=== PATIENT | female | born 1995 | race Caucasian/White ===

== ENCOUNTER → 2017-12-30 | Outpatient (REF) | payer OTHER ==
[2017-12-31 12:51] LABS: CHLAMYDIA DNA AMPLIFICATION NEGATIVE (NEGATIVE); GC DNA AMPLIFICATION NEGATIVE (NEGATIVE)
== END ==
LOC: M SFHCLERA 17:14
DX: R30.0 Dysuria (principal)
CPT/HCPCS: 87086

== ENCOUNTER 2018-01-05 18:04 | Outpatient (CLI) | payer OTHER ==
[2018-01-05] MEDS: CYCLOBENZAPRINE 10 MG TAB PO (19:38)
== END 2018-01-05 19:55 | disposition home or self-care (01) ==
LOC: M LDO 18:04
DX: O26.892 Other specified pregnancy related conditions, second trimester (principal); Z3A.23 23 weeks gestation of pregnancy; O24.419 Gestational diabetes mellitus in pregnancy, unspecified control; O36.8920 Maternal care for other specified fetal problems, second trimester, not applicable or unspecified; Z87.59 Personal history of other complications of pregnancy, childbirth and the puerperium; O99.342 Other mental disorders complicating pregnancy, second trimester; F32.9 Major depressive disorder, single episode, unspecified; O23.42 Unspecified infection of urinary tract in pregnancy, second trimester
CPT/HCPCS: G0463

== ENCOUNTER 2018-01-18 20:02 | Outpatient (CLI) | payer OTHER | END 2018-01-18 21:49 | disposition home or self-care (01) | LOC: M LDO 20:02 | DX: O60.02 Preterm labor without delivery, second trimester (principal); O24.419 Gestational diabetes mellitus in pregnancy, unspecified control; O36.8920 Maternal care for other specified fetal problems, second trimester, not applicable or unspecified; Z3A.25 25 weeks gestation of pregnancy | CPT/HCPCS: 59025 ==

== ENCOUNTER 2018-01-23 15:54 | Outpatient (CLI) | payer OTHER | END 2018-01-23 21:25 | disposition home or self-care (01) | LOC: M LDO 15:54 | DX: O36.8120 Decreased fetal movements, second trimester, not applicable or unspecified (principal); Z3A.26 26 weeks gestation of pregnancy; O36.8920 Maternal care for other specified fetal problems, second trimester, not applicable or unspecified; O24.419 Gestational diabetes mellitus in pregnancy, unspecified control; O99.342 Other mental disorders complicating pregnancy, second trimester | CPT/HCPCS: 76820 ==

== ENCOUNTER 2018-02-03 17:12 | Outpatient (CLI) | payer OTHER ==
[2018-02-03 18:42] LABS: HEMATOCRIT 35.6 % (36.0-47.0); HEMOGLOBIN 12.2 g/dl (12.0-15.5); MEAN CORPUSCULAR HEMOGLOBIN 27.9 pg (27.0-33.0); MEAN CORPUSCULAR HGB CONC 34.3 g/dl (32.0-36.5); MEAN CORPUSCULAR VOLUME 81.5 fl (80.0-96.0); PLATELET COUNT, AUTOMATED 234 10^3/uL (150-450); RED BLOOD COUNT 4.37 10^6/uL (4.00-5.40); RED CELL DISTRIBUTION WIDTH 13.1 % (11.5-14.5)
[2018-02-03 18:46] LABS: APPEARANCE, URINE CLEAR (CLEAR); BACTERIA, URINE AUTO NEGATIVE (NEGATIVE); BILIRUBIN, URINE AUTO NEGATIVE (NEGATIVE); BLOOD, URINE BLOOD NEGATIVE (NEGATIVE); COLOR, URINE YELLOW (YELLOW); GLUCOSE, URINE (UA) AUTO NEGATIVE (NEGATIVE); KETONE, URINE AUTO TRACE mg/dL (NEGATIVE); LEUKOCYTE ESTERASE, URINE AUTO NEGATIVE (NEGATIVE); MUCUS, URINE SMALL (NEGATIVE); NITRITE, URINE AUTO NEGATIVE (NEGATIVE); PROTEIN, URINE AUTO NEGATIVE (NEGATIVE); RBC, URINE AUTO 1 /HPF (0-3); SPECIFIC GRAVITY URINE AUTO 1.028 (1.002-1.035); SQUAMOUS EPITHELIAL CELL UR AU 1 /HPF (0-6); WBC, URINE AUTO 2 /HPF (0-3)
[2018-02-03 19:08] LABS: ALBUMIN 3.7 GM/DL (3.2-5.2); ALKALINE PHOSPHATASE 111 U/L (45-117); ALT/SGPT 14 U/L (12-78); AMYLASE 22 U/L (25-115); ANION GAP 8 MEQ/L (8-16); AST/SGOT 9 U/L (7-37); BILIRUBIN,TOTAL 0.5 MG/DL (0.2-1.0); BLOOD UREA NITROGEN 6 MG/DL (7-18); CALCIUM LEVEL 8.5 MG/DL (8.5-10.1); CARBON DIOXIDE LEVEL 25 MEQ/L (21-32); CHLORIDE LEVEL 107 MEQ/L (98-107); CREATININE FOR GFR 0.37 MG/DL (0.55-1.30); GLOMERULAR FILTRATION RATE > 60.0 (>60); GLUCOSE, FASTING 80 MG/DL (70-100); LIPASE 69 U/L (73-393); POTASSIUM SERUM 3.6 MEQ/L (3.5-5.1); SODIUM LEVEL 140 MEQ/L (136-145); TOTAL PROTEIN 7.4 GM/DL (6.4-8.2)
== END 2018-02-03 20:20 | disposition home or self-care (01) ==
LOC: M LDO 17:12
DX: O35.8XX0 Maternal care for other (suspected) fetal abnormality and damage, not applicable or unspecified (principal); Z3A.27 27 weeks gestation of pregnancy; O36.5930 Maternal care for other known or suspected poor fetal growth, third trimester, not applicable or unspecified
CPT/HCPCS: G0463

== ENCOUNTER 2018-07-15 18:42 | Emergency (ER) | payer OTHER ==
[~2018-07-15] VITALS: Ht 157.5 cm; Wt 79.5 kg
[~2018-07-15 18:42] MED LIST: COLA100C5 PO; MAPA500T17 PO; MOTR200T44 PO; MULTCAP PO
[2018-07-15] MEDS ORDERED: ONDANSETRON 4MG/2ML VIAL (J2405) IV ONE (20:30)
[2018-07-15] MEDS ORDERED: NS 1,000 ML IV ONE (20:30)
[2018-07-15 20:44] LABS: BASO % 0.3 % (0.0-1.0); EOS # 0.1 10^3/uL (0.0-0.50); EOS % 1.3 % (0.0-3.0); HEMATOCRIT 38.5 % (36.0-47.0); HEMOGLOBIN 12.6 g/dl (12.0-15.5); LYMPH # 2.9 10^3/uL (1.5-6.5); LYMPH % 29.7 % (24.0-44.0); MEAN CORPUSCULAR HEMOGLOBIN 26.9 pg (27.0-33.0); MEAN CORPUSCULAR HGB CONC 32.7 g/dl (32.0-36.5); MEAN CORPUSCULAR VOLUME 82.1 fl (80.0-96.0); MONO # 0.7 10^3/uL (0.0-0.8); MONO % 6.9 % (0.0-5.0); NEUTROPHILS # 6.1 10^3/uL (1.8-7.7); NEUTROPHILS % 61.6 % (36.0-66.0); PLATELET COUNT, AUTOMATED 303 10^3/uL (150-450); RED BLOOD COUNT 4.69 10^6/uL (4.00-5.40); WHITE BLOOD COUNT 9.9 10^3/uL (4.0-10.0)
[2018-07-15] MEDS ORDERED: ONDANSETRON 4 MG ORAL DISINTEGRATING TAB (Q0162 PER 1MG) PO ONE (20:45)
[2018-07-15 20:58] LABS: HCG, SERUM QUALITATIVE NEGATIVE (NEGATIVE)
[2018-07-15 21:06] LABS: ALBUMIN 4.3 GM/DL (3.2-5.2); ALT/SGPT 17 U/L (12-78); BILIRUBIN,DIRECT 0.1 MG/DL (0.0-0.2); BILIRUBIN,TOTAL 0.5 MG/DL (0.2-1.0); BLOOD UREA NITROGEN 6 MG/DL (7-18); CALCIUM LEVEL 8.7 MG/DL (8.5-10.1); CARBON DIOXIDE LEVEL 28 MEQ/L (21-32); CHLORIDE LEVEL 104 MEQ/L (98-107); CREATININE FOR GFR 0.58 MG/DL (0.55-1.30); GLOMERULAR FILTRATION RATE > 60.0 (>60); GLUCOSE, FASTING 91 MG/DL (70-100); POTASSIUM SERUM 4.2 MEQ/L (3.5-5.1); SODIUM LEVEL 138 MEQ/L (136-145); TOTAL PROTEIN 8.2 GM/DL (6.4-8.2)
--- NOTE | 2018-07-15 23:14 | REPVR ---
EXAM: US Pelvis Complete, Transabdominal and US Pelvis, Transvaginal EXAM DATE/TIME: 07/15/2018 9:58 PM CLINICAL HISTORY: 23 years old, female; Signs and symptoms; Menstruation abnormalities; Excessive menstruation; With regular cycle; Additional info: Irregular vaginal bleeding TECHNIQUE: Real-time transabdominal and transvaginal pelvic ultrasound (complete) with image documentation. Transvaginal imaging was used for better evaluation of the endometrium and adnexa. COMPARISON: US OBS SINGEL GEST 01/23/2018 6:43 PM FINDINGS: Uterus/cervix: 8.8 x 3.5 x 5.3 cm. Normal endometrial thickness, measuring approximately 11 mm. Right adnexa: 3.7 x 2.4 x 3 cm. Several follicles. No solid mass. Normal ovarian blood flow. Left adnexa: 2.7 x 2.3 x 2.5 cm. 1.6 x 1.2 x 1.2 cm dominant follicle. No solid mass. Normal ovarian blood flow. Free fluid: None. Bladder: Normal. IMPRESSION: No acute sonographic findings. Electronically signed by: Radhames Liang On 07/15/2018 23:13:47 PM
[2018-07-15 23:30] VITALS: BP 112/69
== END 2018-07-15 23:31 | disposition home or self-care (01) ==
LOC: M ED 18:42
DX: N93.9 Abnormal uterine and vaginal bleeding, unspecified (principal)
CPT/HCPCS: 76830; 76856; 80048; 80076; 81001; 84703; 85025; 86850; 86900; 86901; 93976; 96374; 99283; Q0162

== ENCOUNTER 2018-08-01 21:43 | Emergency (ER) | payer OTHER ==
[~2018-08-01] VITALS: Ht 157.5 cm; Wt 80.0 kg
[~2018-08-01 21:43] MED LIST changes: -MAPA500T17 PO; +MAPA500T2 PO
[2018-08-01] MEDS ORDERED: AMOX500C PO (23:17)
[2018-08-01 23:26] VITALS: BP 120/60
[2018-08-02 00:36] LABS: CHLAMYDIA DNA AMPLIFICATION NEGATIVE (NEGATIVE); GC DNA AMPLIFICATION NEGATIVE (NEGATIVE)
== END 2018-08-01 23:25 | disposition home or self-care (01) ==
LOC: M ED 21:43
DX: N39.0 Urinary tract infection, site not specified (principal); N89.8 Other specified noninflammatory disorders of vagina; Z91.018 Allergy to other foods; Z91.040 Latex allergy status; Z91.89 Other specified personal risk factors, not elsewhere classified

== ENCOUNTER 2018-08-03 08:52 | Emergency (ER) | payer OTHER ==
[~2018-08-03] VITALS: Ht 157.5 cm; Wt 79.5 kg
[~2018-08-03 08:52] MED LIST changes: +AMOX500C PO
[2018-08-03] MEDS ORDERED: MORPHINE 4 MG/ML 1ML VIAL/SYRINGE (J2270) IV ONE (09:45)
[2018-08-03] MEDS ORDERED: ONDANSETRON 4MG/2ML VIAL (J2405) IV ONE (09:45)
[2018-08-03] MEDS ORDERED: NS 1,000 ML IV ONE (09:45)
[2018-08-03 10:05] LABS: BASO % 0.4 % (0.0-1.0); EOS # 0.1 10^3/uL (0.0-0.50); EOS % 1.2 % (0.0-3.0); HEMOGLOBIN 12.9 g/dl (12.0-15.5); LYMPH # 2.2 10^3/uL (1.5-6.5); LYMPH % 26.1 % (24.0-44.0); MEAN CORPUSCULAR HEMOGLOBIN 27.3 pg (27.0-33.0); MEAN CORPUSCULAR HGB CONC 33.1 g/dl (32.0-36.5); MEAN CORPUSCULAR VOLUME 82.5 fl (80.0-96.0); MONO # 0.5 10^3/uL (0.0-0.8); MONO % 6.1 % (0.0-5.0); NEUTROPHILS # 5.5 10^3/uL (1.8-7.7); PLATELET COUNT, AUTOMATED 270 10^3/uL (150-450); RED BLOOD COUNT 4.73 10^6/uL (4.00-5.40); WHITE BLOOD COUNT 8.3 10^3/uL (4.0-10.0)
[2018-08-03 10:31] LABS: HCG, SERUM QUALITATIVE NEGATIVE (NEGATIVE)
[2018-08-03 10:34] LABS: ALT/SGPT 13 U/L (12-78); BILIRUBIN,TOTAL 0.7 MG/DL (0.2-1.0); BLOOD UREA NITROGEN 8 MG/DL (7-18); CALCIUM LEVEL 8.9 MG/DL (8.5-10.1); CARBON DIOXIDE LEVEL 25 MEQ/L (21-32); CHLORIDE LEVEL 106 MEQ/L (98-107); CREATININE FOR GFR 0.52 MG/DL (0.55-1.30); GLOMERULAR FILTRATION RATE > 60.0 (>60); GLUCOSE, FASTING 89 MG/DL (70-100); LIPASE 79 U/L (73-393); POTASSIUM SERUM 3.7 MEQ/L (3.5-5.1); SODIUM LEVEL 139 MEQ/L (136-145); TOTAL PROTEIN 8.3 GM/DL (6.4-8.2)
[2018-08-03 11:22] VITALS: BP 115/76
== END 2018-08-03 11:24 | disposition left against medical advice (07) ==
LOC: M ED 08:52
DX: R10.9 Unspecified abdominal pain (principal); Z91.040 Latex allergy status; Z91.018 Allergy to other foods; Z91.048 Other nonmedicinal substance allergy status

== ENCOUNTER → 2018-10-23 | Outpatient (REF) | payer OTHER | LOC: M SFHCLERA 18:00 | PROVIDERS: ATTEND Physician Assistant | DX: N89.8 Other specified noninflammatory disorders of vagina (principal) ==

== ENCOUNTER → 2019-01-29 | Outpatient (CLI) | payer OTHER ==
--- NOTE | 2019-01-29 15:20 | REP ---
Clinical: Anatomical evaluation. Comparison: None . Findings: Examination demonstrates a single live intrauterine in cephalic presentation. motion is identified by technologist. Placenta is noted anterior and grade one without evidence for placenta previa or abruption. Amniotic fluid volume is normal. Cervix measures 5.2 cm in length and appears closed. No evidence for nuchal cord. Gestational age by LMP 25 weeks 3 days with TOVA 05/11/2019 . Gestational age by current measurements 25 weeks 6 days with TOVA 05/08/2019 . FHR equals 130 beats per minute. BPD 6.5 cm 26 weeks 2 days HC 23.8 cm 25 weeks 6 days AC 21.2 cm 25 weeks 5 days FL 4.7 cm 25 weeks 5 days HL 4.4 cm 26 weeks 1 day HC/AC ratio 1.12 Estimated weight 147 grams ( 52nd percentile). Anatomical assessment demonstrates normal structures including cranium, choroid plexus, cavum, cerebellum/posterior fossa, facial features, lungs, four-chamber heart/ventricular outflow tracts, diaphragm, stomach, cord insertion/three-vessel cord, kidneys/bladder, and upper extremities. Limited evaluation of the spine and lower extremities noted. Impression: 1. Single live intrauterine in cephalic presentation demonstrating appropriate interval growth. 2. Limited evaluation of the spine and lower extremities may warrant reevaluation and follow-up. Remainder of the anatomical assessment is complete and normal. Electronically Signed by Celestine Menjivar MD 01/29/2019 03:12 P
== END ==
LOC: M RAD 12:48
PROVIDERS: ATTEND Obstetrics & Gynecology
DX: Z34.82 Encounter for supervision of other normal pregnancy, second trimester (principal); Z3A.25 25 weeks gestation of pregnancy

== ENCOUNTER → 2019-02-08 | Outpatient (REF) | payer OTHER | LOC: M SFHCLERA 11:47 | PROVIDERS: ATTEND Nurse Practitioner Family | DX: Z53.9 Procedure and treatment not carried out, unspecified reason (principal); R19.5 Other fecal abnormalities ==

== ENCOUNTER → 2019-02-09 | Outpatient (REF) | payer OTHER | LOC: M LAB REF 10:58 | PROVIDERS: ATTEND Nurse Practitioner Family | DX: R19.5 Other fecal abnormalities (principal) ==

== ENCOUNTER → 2019-02-24 | Outpatient (CLI) | payer OTHER ==
[2019-02-24 11:21] LABS: HEMATOCRIT 31.8 % (36.0-47.0); HEMOGLOBIN 10.3 g/dl (12.0-15.5); MEAN CORPUSCULAR HEMOGLOBIN 26.8 pg (27.0-33.0); MEAN CORPUSCULAR HGB CONC 32.4 g/dl (32.0-36.5); MEAN CORPUSCULAR VOLUME 82.6 fl (80.0-96.0); PLATELET COUNT, AUTOMATED 200 10^3/uL (150-450); RED BLOOD COUNT 3.85 10^6/uL (4.00-5.40); WHITE BLOOD COUNT 11.1 10^3/uL (4.0-10.0)
--- NOTE | 2019-02-24 11:46 | REP ---
Clinical: Anatomical evaluation. Comparison: 01/29/2019 . Findings: Examination demonstrates a single live intrauterine in cephalic presentation. motion is identified by technologist. Placenta is noted anterior and grade zero without evidence for placenta previa or abruption. Amniotic fluid volume is normal. Cervix measures 3.6 cm in length and appears closed. No evidence for nuchal cord. Gestational age by LMP 29 weeks 1 day with TOVA 05/11/2019 . Gestational age by current measurements 30 weeks 0 days with TOVA 05/05/2019 . FHR equals 129 beats per minute. Amniotic fluid index: 14.3 cm Biophysical profile score: 8/8 Umbilical cord SD ratio: 4.42 (2.50 - 3.50). Estimated weight 1565 grams ( 73rd percentile). Anatomical assessment demonstrates normal structures including cranium, choroid plexus, cavum, cerebellum/posterior fossa, facial features, lungs, four-chamber heart/ventricular outflow tracts, diaphragm, stomach, cord insertion/three-vessel cord, kidneys/bladder, spine, and extremities. Impression: 1. Single live intrauterine in cephalic presentation demonstrating appropriate interval growth. No gross abnormalities are identified. 2. Mildly elevated umbilical cord SD ratio. Electronically Signed by Celestine Menjivar MD 02/24/2019 11:39 A
== END ==
LOC: M RAD 10:25
PROVIDERS: ATTEND Obstetrics & Gynecology
DX: Z36.9 Encounter for antenatal screening, unspecified (principal); Z3A.30 30 weeks gestation of pregnancy

== ENCOUNTER → 2019-03-11 | Outpatient (REF) | payer OTHER ==
[2019-03-11 13:22] LABS: CHLAMYDIA DNA AMPLIFICATION NEGATIVE (NEGATIVE); GC DNA AMPLIFICATION NEGATIVE (NEGATIVE)
== END ==
LOC: M SFHCLERA 09:39
PROVIDERS: ATTEND Nurse Practitioner Family
DX: R10.2 Pelvic and perineal pain (principal)

== ENCOUNTER → 2019-03-14 | Outpatient (CLI) | payer OTHER ==
[2019-03-14 14:11] LABS: BASO # 0.1 10^3/uL (0.0-0.2); BASO % 0.4 % (0.0-1.0); EOS # 0.1 10^3/uL (0.0-0.50); EOS % 0.6 % (0.0-3.0); HEMATOCRIT 29.8 % (36.0-47.0); HEMOGLOBIN 9.6 g/dl (12.0-15.5); LYMPH # 2.2 10^3/uL (1.5-6.5); LYMPH % 14.4 % (24.0-44.0); MEAN CORPUSCULAR HEMOGLOBIN 26.2 pg (27.0-33.0); MEAN CORPUSCULAR HGB CONC 32.2 g/dl (32.0-36.5); MEAN CORPUSCULAR VOLUME 81.2 fl (80.0-96.0); MONO # 0.9 10^3/uL (0.0-0.8); MONO % 6.1 % (0.0-5.0); NEUTROPHILS # 11.6 10^3/uL (1.8-7.7); NEUTROPHILS % 76.2 % (36.0-66.0); PLATELET COUNT, AUTOMATED 200 10^3/uL (150-450); RED BLOOD COUNT 3.67 10^6/uL (4.00-5.40); WHITE BLOOD COUNT 15.2 10^3/uL (4.0-10.0)
[2019-03-14 14:36] LABS: ALBUMIN 2.6 GM/DL (3.2-5.2); BILIRUBIN,DIRECT 0.2 MG/DL (0.0-0.2); BILIRUBIN,TOTAL 0.4 MG/DL (0.2-1.0); TOTAL PROTEIN 6.5 GM/DL (6.4-8.2)
== END ==
LOC: M LAB 13:17
PROVIDERS: ATTEND Advanced Practice Midwife
DX: O09.293 Supervision of pregnancy with other poor reproductive or obstetric history, third trimester (principal); R10.13 Epigastric pain

== ENCOUNTER 2019-03-17 11:12 | Outpatient (CLI) | payer OTHER ==
[~2019-03-17] VITALS: Ht 157.5 cm; Wt 90.8 kg
[2019-03-17 11:37] VITALS: BP 118/55
[2019-03-17] MEDS ORDERED: FLUCONAZOLE 50MG TABLET PO ONE (12:45)
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
== END 2019-03-17 12:50 | disposition home or self-care (01) ==
LOC: M LDO 11:12
PROVIDERS: ATTEND Advanced Practice Midwife
DX: O99.89 Other specified diseases and conditions complicating pregnancy, childbirth and the puerperium (principal); B37.3 Candidiasis of vulva and vagina; Z3A.31 31 weeks gestation of pregnancy
CPT/HCPCS: 59025; G0378; G0463

== ENCOUNTER → 2019-04-17 | Outpatient (CLI) | payer OTHER ==
[~2019-04-17] MED LIST changes: +PRENTAB9 PO
--- NOTE | 2019-04-18 04:01 | REP ---
Clinical: Growth evaluation. Comparison: 02/24/2019 . Findings: Examination demonstrates a single live intrauterine in cephalic presentation. motion is identified by technologist. Placenta is noted anterior and grade one without evidence for placenta previa or abruption. Amniotic fluid volume is normal. Cervix measures 3.3 cm in length and appears closed. No evidence for nuchal cord. Gestational age by LMP 36 weeks 4 days with TOVA 05/11/2019 . Gestational age by current measurements 38 weeks 0 days with TOVA 05/01/2019 . FHR equals 153 beats per minute. BPD 9.5 cm 38 weeks 4 days HC 33.3 cm 38 weeks 0 days AC 34.7 cm 38 weeks 4 days FL 7.3 cm 37 weeks 3 days HL 6.5 cm 37 weeks 3 days HC/AC ratio 0.96 Estimated weight 3442 grams ( 82nd percentile). Amniotic fluid index: 14.4 cm Umbilical cord SD ratio: 2.77 Impression: Single live intrauterine in cephalic presentation demonstrating somewhat greater than expected growth based on current measurements. Estimated weight remains within normal range. Electronically Signed by Celestine Menjivar MD 04/18/2019 03:52 A
== END ==
LOC: M RAD 12:26
PROVIDERS: ATTEND Advanced Practice Midwife
DX: O09.293 Supervision of pregnancy with other poor reproductive or obstetric history, third trimester (principal); Z3A.36 36 weeks gestation of pregnancy

== ENCOUNTER 2019-04-20 23:44 | Outpatient (CLI) | payer OTHER ==
[~2019-04-20] VITALS: Ht 157.5 cm; Wt 93.6 kg
[~2019-04-20 23:44] MED LIST changes: -PRENTAB9 PO
[2019-04-21 00:08] VITALS: BP 106/67
[2019-04-21] MEDS ORDERED: PRENTAB9 PO (00:29)
== END 2019-04-21 03:15 | disposition home or self-care (01) ==
LOC: M LDO 23:44
PROVIDERS: ATTEND Specialist
DX: O26.893 Other specified pregnancy related conditions, third trimester (principal); M54.5 Low back pain; O47.03 False labor before 37 completed weeks of gestation, third trimester; Z3A.36 36 weeks gestation of pregnancy
CPT/HCPCS: 59025; G0378; G0463

== ENCOUNTER → 2019-04-23 | Outpatient (REF) | payer OTHER ==
[~2019-04-23] MED LIST changes: +PRENTAB9 PO
== END ==
LOC: M LAB REF 18:55
PROVIDERS: ATTEND Obstetrics & Gynecology
DX: Z36.85 Encounter for antenatal screening for Streptococcus B (principal)

== ENCOUNTER 2019-05-07 00:33 | Outpatient (CLI) | payer OTHER ==
[~2019-05-07] VITALS: Ht 157.5 cm; Wt 93.0 kg
[2019-05-07 00:56] VITALS: BP 116/65
== END 2019-05-07 01:33 | disposition home or self-care (01) ==
LOC: M LDO 00:33
PROVIDERS: ATTEND Specialist
DX: O47.1 False labor at or after 37 completed weeks of gestation (principal); Z3A.38 38 weeks gestation of pregnancy
CPT/HCPCS: 59025; G0378; G0463

== ENCOUNTER 2019-05-10 07:29 | Inpatient (IN) | payer OTHER ==
[2019-05-10] VITALS (26 sets, daily range): BP systolic 89–182; BP diastolic 51–130
[~2019-05-10] VITALS: Ht 157.5 cm; Wt 94.7 kg
[2019-05-10] MEDS ORDERED: LACTATED RINGER'S 1000 ML IV STA (09:13)
[2019-05-10 10:22] LABS: HEMATOCRIT 29.6 % (36.0-47.0); HEMOGLOBIN 9.3 g/dl (12.0-15.5); MEAN CORPUSCULAR HEMOGLOBIN 24.3 pg (27.0-33.0); MEAN CORPUSCULAR HGB CONC 31.4 g/dl (32.0-36.5); MEAN CORPUSCULAR VOLUME 77.5 fl (80.0-96.0); PLATELET COUNT, AUTOMATED 215 10^3/uL (150-450); RED BLOOD COUNT 3.82 10^6/uL (4.00-5.40); WHITE BLOOD COUNT 11.2 10^3/uL (4.0-10.0)
[2019-05-10] MEDS: LR 1,000 ML IV SCH ×2 (10:40→18:22)
[2019-05-10] MEDS: OXYTOCIN DRIP 30 UNITS in IV 1 EA IV SCH (10:41)
[2019-05-11] VITALS (15 sets, daily range): BP systolic 94–133; BP diastolic 50–82
[2019-05-11] MEDS ORDERED: PROMETHAZINE INJ 25 MG/ML VIAL (J2550) IV ONE (01:30)
[2019-05-11] MEDS ORDERED: BUTORPHANOL 2 MG/ML INJ (J0595) IV ONE (01:30)
[2019-05-11] MEDS: LR 1,000 ML IV SCH ×2 (01:48→12:04)
[2019-05-11] MEDS ORDERED: SLF 3 ML SYR IV PRN (09:30)
[2019-05-11] MEDS: OXYTOCIN DRIP 30 UNITS in IV 1 EA IV SCH (13:15)
[2019-05-11] MEDS ORDERED: SLF 3 ML SYR IV SCH (14:00)
[2019-05-11] MEDS ORDERED: BICITRA 30ML SOLN UDC As Ordered ONE (15:50)
[2019-05-11] MEDS ORDERED: ceFAZolin 2 GM/D5W 50 ML IV BAG (J0690 PER 500MG) As Ordered ONE (15:50)
[2019-05-11] MEDS ORDERED: AZITHROMYCIN INJ 500MG VIAL (J0456) As Ordered ONE (15:51)
[2019-05-11] MEDS ORDERED: ceFAZolin SOD 2 GM in IV 1 EA IV ONE (16:00)
[2019-05-11] MEDS ORDERED: BICITRA 30ML SOLN UDC PO ONE (16:00)
[2019-05-11] MEDS ORDERED: AZITHROMYCIN INJ 500 MG, VIAL MATE ADAPTER 1 EACH in D5W 250 ML IV ONE (16:00)
[2019-05-11] MEDS ORDERED: OXYTOCIN INJ 10 UNITS/ML VIAL (J2590) As Ordered ONE (16:13)
[2019-05-11] MEDS ORDERED: ONDANSETRON 4MG/2ML VIAL (J2405) As Ordered ONE (16:13)
[2019-05-11] MEDS ORDERED: MORPHINE PRES-FREE INJ 10 MG/10 ML VIAL (J2274) As Ordered ONE (16:15)
[2019-05-11] MEDS ORDERED: PHENYLephrine HCL 500 MCG/5 ML (100MCG/ML) SYRINGE (J2370) As Ordered ONE (17:02)
[2019-05-11] MEDS ORDERED: ePHEDrine SULFATE 25 MG/5 ML(5MG/ML) SYRINGE As Ordered ONE (17:02)
[2019-05-11] MEDS ORDERED: MIDAZOLAM INJ 2 MG/2 ML VIAL (J2250) As Ordered ONE (17:14)
[2019-05-11] MEDS ORDERED: OXYTOCIN DRIP 30 UNITS in IV 1 EA IV SCH (17:51)
[2019-05-11] MEDS ORDERED: OXYTOCIN 30 UNITS IN 0.9% NaCl 500ML IV BAG (J2590) As Ordered ONE (17:54)
[2019-05-11] MEDS ORDERED: ACETAMINOPHEN 500 MG TAB PO PRN (18:00)
[2019-05-11] MEDS ORDERED: RHOGAM 300 MCG (1500 IU) INJ (J2790) IM SCH (18:00)
[2019-05-11] MEDS ORDERED: PROMETHAZINE 25 MG TAB PO PRN (18:00)
[2019-05-11] MEDS ORDERED: ONDANSETRON 4MG/2ML VIAL (J2405) IV PRN ×2 (18:00→18:15)
[2019-05-11] MEDS ORDERED: MEASLES,MUMPS,RUBELLA VACCINE INJ (MMR-II) (90707) SC SCH (18:00)
[2019-05-11] MEDS ORDERED: fentaNYL 100 MCG/2 ML INJECTION (J3010) IV PRN (18:15)
[2019-05-11] MEDS ORDERED: oxyCODONE 5MG TAB PO PRN (18:15)
[2019-05-11] MEDS ORDERED: KETOROLAC 30 MG/ML VIAL (J1885) As Ordered ONE (18:41)
[2019-05-11] MEDS: KETOROLAC 30 MG/ML VIAL (J1885) IV SCH (18:43)
[2019-05-11] MEDS: PERCOCET 5MG/325MG TAB PO PRN (22:58)
[2019-05-12] VITALS (15 sets, daily range): BP systolic 89–107; BP diastolic 46–63
[2019-05-12] MEDS: KETOROLAC 30 MG/ML VIAL (J1885) IV SCH ×3 (01:11→13:19)
[2019-05-12] MEDS: LR 1,000 ML IV SCH ×3 (01:12→09:51)
[2019-05-12] MEDS: PERCOCET 5MG/325MG TAB PO PRN ×6 (05:18→20:34)
[2019-05-12 06:54] LABS: HEMATOCRIT 21.7 % (36.0-47.0); MEAN CORPUSCULAR HEMOGLOBIN 24.7 pg (27.0-33.0); MEAN CORPUSCULAR HGB CONC 30.9 g/dl (32.0-36.5); MEAN CORPUSCULAR VOLUME 80.1 fl (80.0-96.0); PLATELET COUNT, AUTOMATED 152 10^3/uL (150-450); RED BLOOD COUNT 2.71 10^6/uL (4.00-5.40); WHITE BLOOD COUNT 10.7 10^3/uL (4.0-10.0)
[2019-05-12 06:58] LABS: HEMOGLOBIN 6.7 g/dl (12.0-15.5)
[2019-05-12] MEDS ORDERED: PERCOCET PO (07:50)
[2019-05-12] MEDS ORDERED: IBUP80TA PO (07:50)
[2019-05-12] MEDS: PRENATAL VITAMINS CHEWABLE TABLET PO SCH (09:52)
[2019-05-12] MEDS: IBUPROFEN 800 MG TAB PO SCH (21:13)
[2019-05-13] MEDS: PERCOCET 5MG/325MG TAB PO PRN ×3 (00:18→08:41)
[2019-05-13 02:20] VITALS: BP 97/51
[2019-05-13] MEDS: IBUPROFEN 800 MG TAB PO SCH (04:21)
[2019-05-13 05:52] VITALS: BP 110/57
[2019-05-13 06:44] LABS: HEMATOCRIT 28.7 % (36.0-47.0); MEAN CORPUSCULAR HEMOGLOBIN 25.9 pg (27.0-33.0); MEAN CORPUSCULAR HGB CONC 32.4 g/dl (32.0-36.5); MEAN CORPUSCULAR VOLUME 79.9 fl (80.0-96.0); PLATELET COUNT, AUTOMATED 166 10^3/uL (150-450); RED BLOOD COUNT 3.59 10^6/uL (4.00-5.40); WHITE BLOOD COUNT 11.6 10^3/uL (4.0-10.0)
[2019-05-13 06:49] LABS: HEMOGLOBIN 9.3 g/dl (12.0-15.5)
--- NOTE | 2019-05-13 07:37 | DS.PDOC ---
Discharge Summary General Date of Admission May 10, 2019 at 07:29 Date of Discharge 05/13/2019 Attending Physician: SADIQ ARAMBULA DO Discharge Summary PROCEDURES PERFORMED DURING STAY: Primary section. ADMITTING DIAGNOSES: 1. . DISCHARGE DIAGNOSES: 1. Day 2 postoperative. COMPLICATIONS/CHIEF COMPLAINT: Induction. HISTORY OF PRESENT ILLNESS: . HOSPITAL COURSE: . DISCHARGE MEDICATIONS: Please see below. ALLERGIES: Please see below. PHYSICAL EXAMINATION ON DISCHARGE: VITAL SIGNS: Please see below. GENERAL: HEENT: NECK: CARDIOVASCULAR EXAMINATION: RESPIRATORY EXAMINATION: ABDOMINAL EXAMINATION: EXTREMITIES: SKIN: NEUROLOGICAL EXAMINATION: PSYCHIATRIC EXAMINATION: LABORATORY DATA: Please see below. ACTIVITY: As tolerated. DIET: regular DISCHARGE INSTRUCTIONS: 1. . DISCHARGE CONDITION: Stable. Vital Signs/I&Os Vital Signs Date Time Temp Pulse Resp B/P (MAP) Pulse Ox O2 Delivery O2 Flow Rate FiO2 05/13/19 05:52 97.2 84 17 110/57 (74) 05/12/19 17:49 97 I&O- Last 24 Hours up to 6 AM 05/13/19 06:00 Intake Total 2383 ml Output Total 2100 ml Balance 283 ml Laboratory Data Labs 24H Laboratory Tests 2 05/13/19 06:23: Nucleated Red Blood Cells % (auto) 0.0 CBC/BMP Laboratory Tests 05/13/19 06:23 Red Blood Count 3.59 L, Mean Corpuscular Volume 79.9 L, Mean Corpuscular Hemoglobin 25.9 L, Mean Corpuscular Hemoglobin Concent 32.4, Red Cell Distribution Width 17.0 H Discharge Medications Scheduled Ibuprofen (Ibuprofen) 800 Mg Tablet, 800 MG PO Q8H Scheduled PRN Oxycodone/Acetaminophen (Oxycodone-Acetaminophen 5-325) 1 Each Tablet, 1 TAB PO Q4HP PRN for MILD PAIN (PS 1-4) Allergies Coded Allergies: [place] (Verified Allergy, Severe, tongue swelling, 08/01/18) copper (Verified Allergy, Severe, ANAPHYLAXIS, 05/07/19) latex (Verified Allergy, Severe, ANAPHYLAXIS, 05/07/19) cinnamon (Verified Allergy, Unknown, 05/07/19) HIVES/SWELLING IGNACIO YOUNG CNM May 13, 2019 07:37
[2019-05-13] MEDS: PRENATAL VITAMINS CHEWABLE TABLET PO SCH (08:40)
== END 2019-05-13 13:30 | disposition home or self-care (01) | DRG 773 ==
LOC: M LDI 07:29 → M OBS 05-11 19:30
PROVIDERS: ADMIT Obstetrics & Gynecology; ATTEND Obstetrics & Gynecology
PROC: 10D00Z1 Extraction of Products of Conception, Low, Open Approach (ICD-10-PCS; principal; 2019-05-11 16:18)
DX: O62.0 Primary inadequate contractions (principal); Z37.0 Single live birth; O36.60X0 Maternal care for excessive fetal growth, unspecified trimester, not applicable or unspecified; Z91.19 Patient's noncompliance with other medical treatment and regimen; D64.9 Anemia, unspecified; O99.02 Anemia complicating childbirth; Z87.59 Personal history of other complications of pregnancy, childbirth and the puerperium; Z3A.39 39 weeks gestation of pregnancy

== ENCOUNTER → 2019-07-29 | Outpatient (REF) | payer OTHER ==
[~2019-07-29] MED LIST changes: +IBUP80TA PO; +PERCOCET PO
== END ==
LOC: M SFHCLERA 11:17
PROVIDERS: ATTEND Physician Assistant
DX: J02.9 Acute pharyngitis, unspecified (principal)

== ENCOUNTER 2020-11-02 06:13 | Emergency (ER) | payer OTHER ==
[~2020-11-02] VITALS: Ht 157.5 cm; Wt 83.3 kg
[2020-11-02 07:22] LABS: BASO % 0.3 % (0.0-1.0); EOS # 0.1 10^3/uL (0.0-0.5); EOS % 1.4 % (0.0-3.0); HEMATOCRIT 38.7 % (36.0-47.0); HEMOGLOBIN 12.6 g/dl (12.0-15.5); LYMPH # 2.3 10^3/uL (1.5-5.0); LYMPH % 24.2 % (24.0-44.0); MEAN CORPUSCULAR HEMOGLOBIN 26.4 pg (27.0-33.0); MEAN CORPUSCULAR HGB CONC 32.6 g/dl (32.0-36.5); MEAN CORPUSCULAR VOLUME 81.1 fl (80.0-96.0); MONO # 0.6 10^3/uL (0.0-0.8); MONO % 6.6 % (2.0-8.0); NEUTROPHILS # 6.4 10^3/uL (1.5-8.5); NEUTROPHILS % 67.2 % (36.0-66.0); PLATELET COUNT, AUTOMATED 257 10^3/uL (150-450); RED BLOOD COUNT 4.77 10^6/uL (4.00-5.40); WHITE BLOOD COUNT 9.5 10^3/uL (4.0-10.0)
[2020-11-02] MEDS ORDERED: GI COCKTAIL 50ML BTL(HYOSCYAMINE/MAALOX/LIDOCAINE VISCOUS)(1:3:1) PO ONE (07:30)
[2020-11-02] MEDS ORDERED: ONDANSETRON 4 MG ORAL DISINTEGRATING TAB PO ONE (07:45)
--- NOTE | 2020-11-02 07:46 | REP ---
INDICATION: severe epigastric pain. COMPARISON: None. TECHNIQUE: Upright PA chest, single view and supine and upright views of the abdomen. FINDINGS: PA chest: There are no comparisons. Lung khan are clear. Cardiac size is normal. The sherlyn, mediastinum, and skeletal structures are unremarkable. There is no free subdiaphragmatic air. Supine and upright abdomen: The bowel gas pattern is normal. There are no calcifications. There are 2 ring shaped structures superimposed over the sacrum, 1 on the right and 1 on the left, possibly clothing or gowning artifacts. The skeletal structures and soft tissues are otherwise unremarkable. IMPRESSION: Negative PA chest. Normal bowel gas pattern. <Electronically signed by Carlos Whipple > 11/02/20 [id number]
[2020-11-02 07:54] LABS: ALT/SGPT 47 U/L (12-78); BILIRUBIN,DIRECT 0.1 MG/DL (0.0-0.2); BILIRUBIN,TOTAL 0.2 MG/DL (0.2-1.0); CK-MB VALUE MASS < 1.0 NG/ML (<3.6); CPK CREATINE PHOSPHOKINASE 60 U/L (26-192); LIPASE 102 U/L (73-393); MB/CK RELATIVE INDEX 1.67 (< OR =4); TOTAL PROTEIN 7.9 GM/DL (6.4-8.2); TROPONIN I < 0.02 NG/ML (< 0.10)
[2020-11-02] MEDS ORDERED: ACETAMINOPHEN 325 MG TAB PO ONE (08:15)
[2020-11-02] MEDS ORDERED: ZOFR4TAB16 PO (09:26)
[2020-11-02] MEDS ORDERED: PROT1TAB2 PO (09:26)
[2020-11-02 09:37] VITALS: BP 109/64
== END 2020-11-02 09:39 | disposition home or self-care (01) ==
LOC: M ED 06:13
DX: R10.13 Epigastric pain (principal); R11.0 Nausea; Z87.440 Personal history of urinary (tract) infections; Z91.040 Latex allergy status
CPT/HCPCS: 36415; 74021; 80047; 80076; 81001; 82550; 82553; 83690; 84484; 84702; 85025; 87086; 99283; Q0162

== ENCOUNTER → 2021-05-26 | Outpatient (CLI) | payer OTHER ==
[~2021-05-26] MED LIST changes: +PROT1TAB2 PO; +ZOFR4TAB16 PO
--- NOTE | 2021-05-26 17:35 | REP ---
INDICATION: PREG DATING VIABILITY W/ CREVIX LENGETH. COMPARISON: None. TECHNIQUE: Transabdominal scanning FINDINGS: Multiple ultrasonographic images of the gravid uterus shows a single living intrauterine gestation in the transverse head maternal right position. The placenta is posterior and not low-lying. The cervix measures 6 cm in length and is closed. Doppler interrogation of the heart shows a heart rate of 130 beats per minute. BPD: 3.7 cm 17 weeks 2 days AC: 14.0 cm 17 weeks 3 days AC: 11.5 cm 17 weeks 2 days FL: 2.4 cm 17 weeks 0 days Estimated weight is 185 g anatomical structures seen to be unremarkable are as follows: Thalami, cavum septum pellucidum, cisterna magna, upper lip, spine, kidneys, stomach, urinary bladder, three-vessel umbilical cord, cord insertion, and upper lower extremities. Four-chamber heart and ventricular outflow tracts were suboptimally visualized the cerebellum was suboptimally visualized. IMPRESSION: Single living intrauterine gestation as described above an estimated gestational age of 17 weeks 2 days via composite criteria and an estimated date of delivery of 11/01/2021 by today's exam. No anomalies were detected, however, I recommend a follow-up examination to optimally visualize those anatomical structures suboptimally visualized today as described above. <Electronically signed by Kartik Bush > 05/26/21 [id number]
== END ==
LOC: M RAD 15:38
PROVIDERS: ATTEND Obstetrics & Gynecology
DX: Z36.3 Encounter for antenatal screening for malformations (principal); O09.299 Supervision of pregnancy with other poor reproductive or obstetric history, unspecified trimester; Z3A.17 17 weeks gestation of pregnancy

== ENCOUNTER → 2021-05-26 | Outpatient (CLI) | payer OTHER ==
[2021-05-26 16:29] LABS: GLUCOSE CHALLENGE TEST 1 HOUR 88 MG/DL (LESS THAN 140)
[2021-05-26 16:38] LABS: HEMATOCRIT 33.4 % (36.0-47.0); HEMOGLOBIN 10.7 g/dl (12.0-15.5); MEAN CORPUSCULAR VOLUME 81.1 fl (80.0-96.0); PLATELET COUNT, AUTOMATED 221 10^3/uL (150-450); RED BLOOD COUNT 4.12 10^6/uL (4.00-5.40); WHITE BLOOD COUNT 9.8 10^3/uL (4.0-10.0)
[2021-05-26 17:34] LABS: HEPATITIS C VIRUS ABY INDEX < 0.0 INDEX (<0.8); HIV 1&2 SCREEN CENTAUR NEGATIVE (NEGATIVE)
[2021-05-27 07:34] LABS: GC DNA AMPLIFICATION NEGATIVE (NEGATIVE)
== END ==
LOC: M PLALAB 13:16
PROVIDERS: ATTEND Obstetrics & Gynecology
DX: Z36.89 Encounter for other specified antenatal screening (principal); Z3A.17 17 weeks gestation of pregnancy

== ENCOUNTER → 2021-08-09 | Outpatient (CLI) | payer OTHER | LOC: M WHC 15:24 | PROVIDERS: ATTEND Obstetrics & Gynecology | DX: Z34.82 Encounter for supervision of other normal pregnancy, second trimester (principal); Z3A.29 29 weeks gestation of pregnancy ==